=== PATIENT | male | born 1965 | race Caucasian/White ===

== ENCOUNTER 2016-08-08 22:01 | Emergency (ER) | payer OTHER ==
[~2016-08-08] VITALS: Ht 188 cm; Wt 139.0 kg
[2016-08-08 22:37] LABS: MCH 27.2 PG (29.0-34.0); MCHC 33.6 G/DL (30.0-36.0); MCV 81.1 FL (86-99); MEAN PLAT.VOLUME 9.2 uM^3 (9.0-12.4); PLATELET COUNT 324 K/uL (156-360); RBC DIS.WIDTH-CV 14.2 % (11.8-14.6); RBC DIS.WIDTH-SD 41.8 % (39-53); RED BLOOD COUNT 5.18 M/uL (4.00-5.50); WHITE BLOOD COUNT 7.8 K/uL (4.1-10.2)
[2016-08-08 22:45] LABS: CHLORIDE 104 mEq/L (99-109); POTASSIUM 3.6 mEq/L (3.7-5.4); SODIUM 140 mEq/L (136-147)
[2016-08-08 22:46] LABS: GLUCOSE 112 mg/dL (70-99)
[2016-08-08 22:48] LABS: ANION GAP 9 MEQ/L (2-14)
[2016-08-08 22:50] LABS: GFR ESTIMATE (CALCULATED) > 59 mL/min/
[2016-08-08 22:51] LABS: UREA NITROGEN (BUN) 17 mg/dL (9-23)
[2016-08-08 22:57] LABS: TROP-I INTERPRETATION NEGATIVE; TROPONIN-I < 0.01 ng/mL (0.0-0.30)
[2016-08-09 01:17] LABS: TROP-I INTERPRETATION NEGATIVE; TROPONIN-I < 0.01 ng/mL (0.0-0.30)
[2016-08-09 02:46] VITALS: BP 153/89
== END 2016-08-09 02:47 | disposition home or self-care (01) ==
LOC: EME 22:01
PROVIDERS: Emergency Medicine
DX: R07.89 Other chest pain (principal); I10 Essential (primary) hypertension
CPT/HCPCS: 71020; 71275; 80048; 84484; 85027; 85379; 93005; 99281; 99285; J7030